=== PATIENT | female | born 1990 ===

== ENCOUNTER → 2024-10-10 13:07 | Outpatient (CLI) | payer OTHER, SELFPAY ==
[2024-10-10 14:03] LABS: Appearance Urine UA SL CLOUDY; Bilirubin Urine UA NEGATIVE (NEGATIVE); Color Urine UA YELLOW; Glucose Urine UA NEGATIVE (Negative); Ketones Urine UA TRACE (NEGATIVE); Leukocyte Esterase Urine UA NEGATIVE (NEGATIVE); Nitrite Urine UA NEGATIVE (Negative); Occult Blood Urine UA 1+ (Negative); Protein Urine UA TRACE (Negative); Specific Gravity Urine UA 1.025 (1.000-1.035); Urobilinogen Urine UA 0.2 E.U./dL (0.2)
[2024-10-10 14:08] LABS: pH Urine UA 6.5 (4.5-8.0)
[2024-10-10 14:13] LABS: Add Manual Diff / Slide Review NO; Basophils Absolute Auto 0 /uL (0-100); Basophils Percent Auto 0.3 % (0-2); Eosinophils Absolute Auto 400 /uL (0-450); Eosinophils Percent Auto 3.7 % (2-4); Hematocrit 33.7 % (36-46); Hemoglobin 11.8 g/dL (12.0-16.0); Lymphocytes Absolute Auto 2100 /uL (1100-4500); Lymphocytes Percent Auto 19.5 % (25-40); Mean Corpuscular HGB Conc 34.9 % (30-36); Mean Corpuscular Hemoglobin 29.3 PG (26-34); Monocytes Absolute Auto 700 /uL (0-900); Monocytes Percent Auto 6.3 % (3-14); Neutrophils Absolute Auto 7700 /uL (1500-7000); Neutrophils Percent Auto 70.2 % (50-75); Platelet Count 337 X10^3/uL (150-400); Red Blood Cell Count 4.02 X10^6/uL (4.0-5.2); Red Cell Distribution Width 13.1 % (11.6-14.8)
[2024-10-10 14:19] LABS: Natera Collection Specimen Collected
[2024-10-10 14:20] LABS: Bacteria Urine Few (2-10); RBC Urine 1-5/HPF (0-5/HPF); Squamous Epithelial Cell Urine 1-5 /HPF (0-5/HPF); Urine Volume 10mL (spun); WBC Urine 1-5/HPF (0-5/HPF)
[2024-10-10 14:20] LABS: Hemoglobin A1C% w Est Avg Glu 5.1 % (4.0-6.0)
[2024-10-10 14:21] LABS: Culture Indicated Urine Cult Not Indicated
[2024-10-10 15:22] LABS: Hepatitis B Surface Antigen NEGATIVE s/c (NEGATIVE); Rubella Antibody IgG 15.3 IU/mL (>15)
[2024-10-10 15:39] LABS: HIV 1 & 2 Ab/Ag 4th Gen Combo NEGATIVE (NEGATIVE); Hep C Virus Ab w/Reflex Quant NEGATIVE s/c (NEGATIVE)
[2024-10-11 04:38] LABS: RPR Screen Non Reactive (Non Reactive)
[2024-10-11 07:39] LABS: Varicella IgG Antibody Reactive (Non Reactive)
== END ==
PROVIDERS: Referring Provider Family Medicine; Visit Provider Family Medicine
DX: O09.521 Supervision of elderly multigravida, first trimester (principal); O99.210 Obesity complicating pregnancy, unspecified trimester
CPT/HCPCS: 36415; 80055; 81003; 81015; 83036; 86787; 86803; 86850; 86900; 86901; 87086; 87389

== ENCOUNTER → 2024-12-06 10:38 | Outpatient (CLI) | payer OTHER, SELFPAY ==
[2024-12-06 12:30] LABS: Hematocrit 30.8 % (36-46); Hemoglobin 10.9 g/dL (12.0-16.0)
[2024-12-06 12:39] LABS: GTT (PREG) 1 Hour PP 50gm Dose 122 mg/dL (76-139)
[2024-12-07 07:09] LABS: Alpha Fetoprotein 44.8 ng/mL (0.0-6.4)
== END ==
PROVIDERS: Referring Provider Family Medicine; Visit Provider Family Medicine
DX: O99.210 Obesity complicating pregnancy, unspecified trimester (principal)
CPT/HCPCS: 82105; 82950; 85014; 85018

== ENCOUNTER 2024-12-12 14:30 | Emergency (ER) | payer OTHER, SELFPAY ==
[2024-12-12 15:49] VITALS: BP 125/74; PULSE 110; RESP 18; TEMP 36.1; O2SAT 98; BMI 36.1
--- NOTE | 2024-12-12 15:58 | DI.US.S_ITS ---
PROCEDURE: US OB LIMITED INDICATIONS: Pain on left side to groin OUTSIDE/PRIOR DATING DATA: Working RICARDO: 05/08/2025 TECHNIQUE: Real-time scanning was performed of the fetus, with image documentation. Endovaginal scanning: Not performed COMPARISON: None. FINDINGS: A single living intrauterine gestation is present. Presentation: Breech. Placenta: Placental position is posterior, without previa. Low lying placenta, with the edge measuring 9 millimeter from the cervical os. Amniotic fluid index: 13.2 cm, normal range is 5-24 cm. Single deepest vertical pocket is 3.9 cm. heart rate: 140 beats per minute. Maternal cervical canal: 4.2 cm long. Normal lower limit is 2.5 cm. Clinically estimated gestational age: 19 weeks 0 days IMPRESSION: Single living intrauterine at nineteen weeks 0 days, RICARDO of 05/08/2025. Low lying placenta, measuring 9 millimeter from the cervical os. Attention on follow-up. No acute abnormality otherwise. Dictated by: Marc Gunter M.D. on 12/12/2024 at 17:01 Approved by: Marc Gunter M.D. on 12/12/2024 at 17:02
[2024-12-12 16:29] LABS: Add Manual Diff / Slide Review NO; Basophils Absolute Auto 100 /uL (0-100); Basophils Percent Auto 0.7 % (0-2); Eosinophils Absolute Auto 300 /uL (0-450); Hematocrit 33.1 % (36-46); Hemoglobin 11.3 g/dL (12.0-16.0); Lymphocytes Absolute Auto 2400 /uL (1100-4500); Lymphocytes Percent Auto 20.4 % (25-40); Mean Corpuscular Hemoglobin 29.4 PG (26-34); Mean Corpuscular Volume 86.4 fL (80-100); Monocytes Absolute Auto 700 /uL (0-900); Monocytes Percent Auto 5.7 % (3-14); Neutrophils Absolute Auto 8300 /uL (1500-7000); Neutrophils Percent Auto 70.2 % (50-75); Platelet Count 321 X10^3/uL (150-400); Red Blood Cell Count 3.83 X10^6/uL (4.0-5.2); Red Cell Distribution Width 13.5 % (11.6-14.8); White Blood Cell Count 11.8 X10^3/uL (4.5-11.0)
[2024-12-12 16:47] LABS: Alanine Aminotransferase 20 IU/L (<35); Albumin 4.2 g/dL (3.5-5.0); Albumin Globulin Ratio 1.1 (1.0-2.8); Alkaline Phosphatase 68 U/L (38-126); Aspartate Aminotransferase 25 IU/L (14-36); BUN Creatinine Ratio 16.7 (6-22); Bilirubin Total 0.4 mg/dL (0.2-1.3); Blood Urea Nitrogen 8 mg/dL (7-17); Calcium 9.3 mg/dL (8.4-10.2); Carbon Dioxide 21 mmol/L (22-32); Chloride 103 mmol/L (98-107); Estimated Glomerular Filt Rate > 60 mL/min (>60); Globulin 3.7 g/dL (1.7-4.1); Glucose 115 mg/dL (70-100); HEMOLYSIS < 15 (0-50); Lipase 93 U/L (23-300); Potassium 3.6 mmol/L (3.4-5.1); Sodium 133 mmol/L (137-145); Total Protein 7.9 g/dL (6.3-8.2)
--- NOTE | 2024-12-13 09:39 | PC.NURSE ---
late entry- care was started in the ED but transferred to Labor and Delivery to further her pregancy related triage. She was sent home from L&D- not admitted. But I don't feel she was a left without being seen in the ED. Her dispo was changed to released, other.
== END 2024-12-12 16:26 | disposition home or self-care (01) ==
PROVIDERS: Emergency Provider Emergency Medicine
DX: O26.892 Other specified pregnancy related conditions, second trimester (principal); R10.32 Left lower quadrant pain; Z3A.19 19 weeks gestation of pregnancy
CPT/HCPCS: 76815; 80053; 83690; 85025

== ENCOUNTER 2024-12-12 16:58 | Outpatient (CLI) | payer OTHER, SELFPAY ==
[2024-12-12 17:21] LABS: Appearance Urine UA CLEAR; Bilirubin Urine UA NEGATIVE (NEGATIVE); Color Urine UA YELLOW; Glucose Urine UA NEGATIVE (Negative); Ketones Urine UA 1+ (NEGATIVE); Leukocyte Esterase Urine UA NEGATIVE (NEGATIVE); Nitrite Urine UA NEGATIVE (Negative); Occult Blood Urine UA NEGATIVE (Negative); Protein Urine UA NEGATIVE (Negative); Specific Gravity Urine UA 1.025 (1.000-1.035); Urobilinogen Urine UA 0.2 E.U./dL (0.2)
--- NOTE | 2024-12-12 17:30 | P.TNLD_ITS ---
Visit Information Visit Information Date of evaluation: 12/12/24 Primary OB Provider: Sandro Root Reason for Evaluation: Yes other Comments/Additional reasons for admission: 34-year-old at GA 19+0 weeks presenting for left lower quadrant pain starting this morning. Reports initially feeling sharp, stabbing sensation in LLQ. Thought it was baby kicking, but was more painful than his kicks typically feel. Pain progressed to being more constant radiating through left groin region. No other symptoms of note. Endorses +FM. Denies vaginal bleeding or discharge, cramping, nausea, vomiting, dysuria, urinary frequency. Has not t ried anything for pain management. On further questioning does admit to occasional constipation/straining when passing BM. otherwise notable for BMI > 30 on ASA, history of delivery in previous . [facility] Medical History (Updated 12/12/24 @ 18:45 by Sandro Root MD) Patient denies significant medical history Situational mixed anxiety and depressive disorder (~2022) Surgical History (System 12/10/24 @ 15:16 by Phyllis Laurent) [place] teeth extracted Previous section (~2007) Family History (System 12/10/24 @ 15:16 by Phyllis Laurent) Grandmother Diabetes mellitus Aunt Uterine cancer Cancer Father Heart disease Hypertension Social History (System 12/10/24 @ 15:16 by Phyllis Laurent) marital status: number of children: 1 household members: spouse, family and children lives independently: Yes caregiver/support person: Yes housing: house pets and animals: Yes (dogs) education level: high school 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, 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) current occupational exposures/hazards: No nirmal/faith: Gnosticist special nirmal needs: No travel history: over 6 months ago other: possible upcoming travel to [place] seatbelt use: always water heater temp set < 120 deg: Yes working smoke detector in home: Yes fire extinguisher in home: Yes carbon monox detector in home: Yes firearms in home: No do you feel safe at home: Yes Smoking Status: Former smoker second hand exposure: No alcohol intake: former (occasionally when not ) substance use type: does not use during the past year weight has: increased > 10 lbs well-balanced diet: daily or most days daily servings fruits/ve-4 caffeine: Yes (black tea, usually only 1 cup/day) Type(s) of exercise: walking Review of Systems Review of Systems ROS: Yes All systems reviewed with the patient and are negative except as otherwise documented Exam Narrative Exam Narrative: General: Well-nourished, no distress HEENT: NC/AT, EOMI, moist mucous membranes CV: RRR, normal S1 S2, no m/g/r Resp: CTAB Abd: Gravid, soft, mild TTP LLQ, otherwise nontender in all quadrants, +BS Ext: Full ROM, no edema Skin: No rash or lesions Neuro: A&O x3, normal tone, no focal deficits Objective Imaging US OB Limited: Radiologist's impression: US OB LIMITED INDICATIONS: Pain on left side to groin OUTSIDE/PRIOR DATING DATA: Working RICARDO: 05/08/2025 TECHNIQUE: Real-time scanning was performed of the fetus, with image documentation. Endovaginal scanning: Not performed COMPARISON: None. FINDINGS: A single living intrauterine gestation is present. Presentation: Breech. Placenta: Placental position is posterior, without previa. Low lying placenta, with the edge measuring 9 millimeter from the cervical os. Amniotic fluid index: 13.2 cm, normal range is 5-24 cm. Single deepest vertical pocket is 3.9 cm. heart rate: 140 beats per minute. Maternal cervical canal: 4.2 cm long. Normal lower limit is 2.5 cm. Clinically estimated gestational age: 19 weeks 0 days IMPRESSION: Single living intrauterine at nineteen weeks 0 days, RICARDO of 05/08/2025. Low lying placenta, measuring 9 millimeter from the cervical os. Attention on follow-up. No acute abnormality otherwise. Dictated by: Marc Gunter M.D. on 12/12/2024 at 17:01 Approved by: Marc Gunter M.D. on 12/12/2024 at 17:02 Labs Labs: WBC 11.8, Hgb 11.3, plt 321 Na 133, Cr 0.48, glucose 115, AST 25, ALT 20, alk phos 68 UA: 1+ ketones; negative for nitrates, leukocytes, WBC, RBC Evaluation Evaluation Baseline heart rate: 140 Diagnosis, Plan/Disposition Final Diagnosis (1) Pelvic pain affecting in second trimester, antepartum: Status: Acute (2) History of delivery affecting : Status: Acute (3) Low lying placenta nos or without hemorrhage, second trimester: Status: Acute Plan/Disposition Plan: 34-year-old at [place] 19+0 weeks presenting for left lower quadrant pain. Workup notable for 1+ ketones in urine indicating mild dehydration. Suspect this in addition to possible component of constipation etiology of discomfort. UA negative for infection, blood work demonstrates only mild leukocytosis with no other systemic signs of illness. US demonstrates SIUP in breech position with 4+ cm cervical canal and no contractions on toco reducing concern for labor. Placenta is posterior without previa, however is low-lying with the edge measuring 9 mm from cervical os. Recommend hydration with Tylenol for analgesia. Discharge home, follow-up at routine visit or sooner if indicated. OB Disposition: home
[2024-12-12] MEDS: ACETAMINOPHEN 325 MG TABLET 975 MG PO (17:40)
[2024-12-12 17:45] LABS: Amorphous Sediment Urine 1+; Bacteria Urine None Seen; Culture Indicated Urine Cult Not Indicated; RBC Urine None Seen (0-5/HPF); Squamous Epithelial Cell Urine 1-5 /HPF (0-5/HPF); Urine Volume 10mL (spun); WBC Urine None Seen (0-5/HPF)
== END 2024-12-12 18:10 | disposition home or self-care (01) ==
LOC: LABOR 18:44 → OB 12-13 15:19
PROVIDERS: Referring Provider Family Medicine; Visit Provider Family Medicine
DX: O26.892 Other specified pregnancy related conditions, second trimester (principal); O44.42 Low lying placenta NOS or without hemorrhage, second trimester; R10.2 Pelvic and perineal pain; O34.219 Maternal care for unspecified type scar from previous cesarean delivery; Z3A.19 19 weeks gestation of pregnancy
CPT/HCPCS: 59050; 76815; 80053; 81001; 83690; 85025; 99281; G0378; G0379

== ENCOUNTER → 2024-12-23 07:34 | Outpatient (CLI) | payer OTHER, SELFPAY ==
--- NOTE | 2024-12-23 07:35 | DI.US.S_ITS ---
PROCEDURE: US OB >= 14 WEEKS FETUS INDICATIONS: anatomy OUTSIDE/PRIOR DATING DATA: The calculations are made using the RICARDO of 05/08/2025. TECHNIQUE: Real-time scanning was performed of the fetus, with image documentation and biometric measurements. Endovaginal scanning: Not performed COMPARISON: [facility], OB LIMITED, 12/12/2024, 16:19. FINDINGS: General: A single living intrauterine gestation is present. Presentation: Variable. Placenta: Placental position is posterior , without previa. Amniotic fluid index: 17.7 cm, normal range is 5-24 cm. Single deepest vertical pocket is 5.1 cm. heart rate: 149 beats per minute. Maternal cervical canal: 4.6 cm long. Normal lower limit is 2.5 cm. biometrics: Biparietal diameter: 5.0 cm, 21 weeks 0 days Head circumference: 18.5 cm, 20 weeks 6 days Abdominal circumference: 16.7 cm, 21 weeks 5 days Femur length: 3.7 cm, 21 weeks 6 days Clinically estimated gestational age: 20 weeks 4 days Composite gestational age from present scan: 21 weeks 3 days Estimated weight and percentile: 444 g, 95th percentile Anatomic survey: Neuro: Ventricles are non-dilated at less than 10 mm. Cisterna magna is normal at 3-11 mm. Cerebellum is normal in size and morphology. Nuchal skin fold: Normal at less than 6 mm between 14-21 weeks gestational age. Face: Nose and lips, facial profile are normal. Spine: Not well seen. Heart: 4-chambered heart is present, outflow tracts are not well seen. Diaphragm: Diaphragm is intact. Stomach: Left-sided stomach is present. Kidneys: No hydronephrosis. Normal is less than 5 mm in 2nd trimester, less than 7 mm in 3rd trimester. Cord: 3-vessel cord has orthotopic insertion. Bladder: Normal in size. Extremities: All 4 extremities identified. IMPRESSION: 1. Single live intrauterine consistent with 21 weeks and 3 days. 2. Estimated weight is in the 95th percentile, developing macrosomia is in the differential and short-term follow-up is recommended. 3. The spine and outflow tracts are not well seen, recommend short-term follow-up. The remainder of the anatomic survey is within normal limits. We strive to produce accurate, complete, and clear reports of imaging services. To assist us in improving patient care, this report was composed using standard report templates and voice recognition software. Therefore, it may contain abnormal punctuation, insertions and/or omissions. Occasional wrong-word or sound-alike substitutions may occur. Though we review the report and make efforts to correct it, we do recommend that the report be read carefully in proper context to recognize any text inaccuracies. Dictated by: Heriberto Justice M.D. on 12/23/2024 at 10:40 Approved by: Heriberto Justice M.D. on 12/23/2024 at 10:44
== END ==
PROVIDERS: Referring Provider Family Medicine; Visit Provider Family Medicine
DX: Z34.82 Encounter for supervision of other normal pregnancy, second trimester (principal); Z3A.21 21 weeks gestation of pregnancy
CPT/HCPCS: 76811

== ENCOUNTER → 2025-01-20 10:59 | Outpatient (CLI) | payer OTHER, SELFPAY ==
--- NOTE | 2025-01-20 11:00 | DI.US.S_ITS ---
PROCEDURE: US OB LIMITED INDICATIONS: incomplete views of spine and cardiac outflow tracts OUTSIDE/PRIOR DATING DATA: Working RICARDO is 05/08/2025 TECHNIQUE: Real-time scanning was performed of the fetus, with image documentation. COMPARISON: [facility], OB >= 14 WEEKS FETUS, 12/23/2024, 7:54. [facility], OB LIMITED, 12/12/2024, 16:19. FINDINGS: A single living intrauterine gestation is present. Presentation: Breech. Placenta: Placental position is posterior, without previa. Amniotic fluid index: 16.7 cm, normal range is 5-24 cm. Single deepest vertical pocket is 4.9 cm. heart rate: 150 beats per minute. Maternal cervical canal: 3.2 cm long. Normal lower limit is 2.5 cm. Clinically estimated gestational age: 24 weeks and 4 days The thoracic spine is likely within normal limits. Other portions of the spine not well seen. Outflow tracts remain not well seen. LVOT is probably normal. IMPRESSION: LVOT and thoracic spine are probably within normal limits. However, the RVOT and other portions of the spine remain not well seen. Dictated by: Jorge Steward M.D. on 01/20/2025 at 15:33 Approved by: Jorge Steward M.D. on 01/20/2025 at 15:36
== END ==
PROVIDERS: Referring Provider Family Medicine; Visit Provider Family Medicine
DX: Z34.82 Encounter for supervision of other normal pregnancy, second trimester (principal); Z3A.24 24 weeks gestation of pregnancy
CPT/HCPCS: 76815

== ENCOUNTER → 2025-03-06 07:08 | Outpatient (CLI) | payer OTHER, SELFPAY ==
--- NOTE | 2025-03-06 07:10 | DI.US.S_ITS ---
PROCEDURE: US OB LIMITED INDICATIONS: spine and outflow tracts are not well seen OUTSIDE/PRIOR DATING DATA: Last menstrual period (LMP): Unknown. LMP-based estimated date of delivery (RICARDO): 05/09/2025. First dating scan (date and location): 10/10/2024. Estimated date of delivery (RICARDO) from first dating scan: 05/08/2025. The calculations are made using the ultrasound RICARDO of 05/08/2025. TECHNIQUE: Real-time scanning was performed of the fetus, with image documentation. Endovaginal scanning: Not performed COMPARISON: [facility], OB LIMITED, 01/20/2025, 11:09. FINDINGS: General: A single living intrauterine gestation is present. Presentation: Vertex. Placenta: Placental position is posterior, without previa. Amniotic fluid index: 8.6 cm, normal range is 5-24 cm. Single deepest vertical pocket is 4.9 cm. heart rate: 143 beats per minute. Maternal cervical canal: 4.8 cm long. Normal lower limit is 2.5 cm. No funneling. Clinically estimated gestational age: 31 weeks 0 days Cervical spine, lumbar spine, sacral spine are within normal limits. No sacrococcygeal abnormality. RVOT and LVOT are within normal limits. IMPRESSION: 1. Yang living intrauterine at 31 weeks 0 days based on prior dating. Vertex position. 2. Normal placenta and amniotic fluid. 3. Normal appearance of the cervical, lumbar, sacral spine. (Thoracic spine previously visualized). RVOT and LVOT are normal in appearance. We strive to produce accurate, complete, and clear reports of imaging services. To assist us in improving patient care, this report was composed using standard report templates and voice recognition software. Therefore, it may contain abnormal punctuation, insertions and/or omissions. Occasional wrong-word or sound-alike substitutions may occur. Though we review the report and make efforts to correct it, we do recommend that the report be read carefully in proper context to recognize any text inaccuracies. Dictated by: Rob Schmidt M.D. on 03/06/2025 at 13:51 Approved by: Rob Schmidt M.D. on 03/06/2025 at 13:57
== END ==
PROVIDERS: Referring Provider Family Medicine; Visit Provider Family Medicine
DX: Z36.89 Encounter for other specified antenatal screening (principal); Z3A.31 31 weeks gestation of pregnancy
CPT/HCPCS: 76815

== ENCOUNTER → 2025-03-24 17:00 | Outpatient (CLI) | payer OTHER, SELFPAY ==
[2025-03-24 17:52] LABS: Hematocrit 31.1 % (36-46); Hemoglobin 10.8 g/dL (12.0-16.0)
[2025-03-24 18:42] LABS: GTT (PREG) 1 Hour PP 50gm Dose 156 mg/dL (76-139)
== END ==
PROVIDERS: Referring Provider Family Medicine; Visit Provider Family Medicine
DX: Z36.9 Encounter for antenatal screening, unspecified (principal); Z3A.25 25 weeks gestation of pregnancy
CPT/HCPCS: 36415; 82950; 85014; 85018

== ENCOUNTER → 2025-03-25 15:01 | Outpatient (CLI) | payer OTHER, SELFPAY ==
[2025-03-25 16:01] LABS: Add Manual Diff / Slide Review NO; Hematocrit 30.4 % (36-46); Hemoglobin 10.7 g/dL (12.0-16.0); Lymphocytes Absolute Auto 1900 /uL (1100-4500); Mean Corpuscular HGB Conc 35.4 % (30-36); Mean Corpuscular Hemoglobin 29.6 PG (26-34); Mean Corpuscular Volume 83.6 fL (80-100); Platelet Count 320 X10^3/uL (150-400)
[2025-03-25 16:23] LABS: Microalbumi Creatinin Ratio Ur 61.0 ug/mg CR (<30)
== END ==
PROVIDERS: Referring Provider Family Medicine; Visit Provider Family Medicine
DX: R60.0 Localized edema (principal); R73.09 Other abnormal glucose
CPT/HCPCS: 36415; 82043; 82570; 85025

== ENCOUNTER → 2025-03-28 08:06 | Outpatient (CLI) | payer OTHER, SELFPAY ==
[2025-03-28 09:26] LABS: Glucose Fasting Gestational 101 mg/dL (76-95)
[2025-03-28 09:32] LABS: Alanine Aminotransferase 14 IU/L (<35); Albumin 3.5 g/dL (3.5-5.0); Albumin Globulin Ratio 1.1 (1.0-2.8); Alkaline Phosphatase 159 U/L (38-126); Blood Urea Nitrogen 10 mg/dL (7-17); Calcium 9.2 mg/dL (8.4-10.2); Carbon Dioxide 21 mmol/L (22-32); Chloride 104 mmol/L (98-107); Estimated Glomerular Filt Rate > 60 mL/min (>60); Globulin 3.3 g/dL (1.7-4.1); Glucose 101 mg/dL (70-99); HEMOLYSIS < 15 (0-50); Potassium 4.1 mmol/L (3.4-5.1); Sodium 134 mmol/L (137-145); Total Protein 6.8 g/dL (6.3-8.2)
[2025-03-28 10:09] LABS: Glucose 1 Hour Gest 185 mg/dL (76-180)
[2025-03-28 11:11] LABS: Glucose 2 Hour Gest 165 mg/dL (76-155)
[2025-03-28 11:28] LABS: Glucose Tol Interp,Gestational INTERPRETATION
[2025-03-28 12:56] LABS: Glucose 3 Hour Gest 130 mg/dL (76-140)
== END ==
PROVIDERS: Referring Provider Family Medicine; Visit Provider Family Medicine
DX: O99.810 Abnormal glucose complicating pregnancy (principal); O09.899 Supervision of other high risk pregnancies, unspecified trimester; O09.521 Supervision of elderly multigravida, first trimester; O12.03 Gestational edema, third trimester; O26.899 Other specified pregnancy related conditions, unspecified trimester; R51.9 Headache, unspecified
CPT/HCPCS: 36415; 80053; 82951; 82952

== ENCOUNTER → 2025-04-07 13:24 | Outpatient (CLI) | payer OTHER, SELFPAY ==
[2025-04-07 14:41] LABS: Creatinine 24 Hour Urine 1269 mg/day (800-1800); Protein (Total) Urine Random 29 mg/dL (0-12); Total Volume Urine 3000 mL
== END ==
PROVIDERS: Referring Provider Family Medicine; Visit Provider Family Medicine
DX: R60.0 Localized edema (principal); R60.9 Edema, unspecified
CPT/HCPCS: 82570; 84156

== ENCOUNTER 2025-04-09 12:47 | Observation (INO) | payer OTHER, SELFPAY ==
--- NOTE | 2025-04-09 13:30 | PM.OBTRLD ---
Visit Information Visit Information Date of evaluation: 04/09/25 Primary OB Provider: Sandro Root Reason for Evaluation: Yes non-stress test Comments/Additional reasons for admission: 34yo presenting for NST. Pt recent 24 hour urine significantly elevated, reported persistent peripheral edema without ERWIN, visual changes, SOB, RUQ pain. Endorses +FM; denies vb, lof, abd pain, ctx. notable for AMA, obesity, macrosomia (EFW 95th percentile). [facility] Medical History (Updated 04/11/25 @ 13:40 by Sandro Root MD) Patient denies significant medical history Situational mixed anxiety and depressive disorder (~2022) Surgical History (System 12/10/24 @ 15:16 by Phyllis Laurent) [place] teeth extracted Previous section (~2007) Family History (System 12/10/24 @ 15:16 by Phyllis Laurent) Grandmother Diabetes mellitus Aunt Uterine cancer Cancer Father Heart disease Hypertension Social History (System 12/10/24 @ 15:16 by Phyllis Laurent) marital status: number of children: 1 household members: spouse, family and children lives independently: Yes caregiver/support person: Yes housing: house pets and animals: Yes (dogs) education level: high school occupational status: employed current occupational exposures/hazards: No nirmal/jew: Sabianism special nirmal needs: No travel history: over 6 months ago other: possible upcoming travel to [place] seatbelt use: always water heater temp set < 120 deg: Yes working smoke detector in home: Yes fire extinguisher in home: Yes carbon monox detector in home: Yes firearms in home: No do you feel safe at home: Yes second hand exposure: No alcohol intake: former substance use type: does not use during the past year weight has: increased > 10 lbs well-balanced diet: daily or most days daily servings fruits/ve-4 caffeine: Yes (black tea, usually only 1 cup/day) Type(s) of exercise: walking Objective Labs 04/09/25 13:45 04/09/25 13:45 Evaluation Evaluation Baseline heart rate: 140 Variability: Moderate (6-25) monitor accelerations: Present Monitor Decelerations: Absent Contraction Frequency (minutes): 7 Uterine Contraction Intensity: Mild Category of Tracing: Reactive Status: Category l Diagnosis, Plan/Disposition Final Diagnosis (1) Elevated blood pressure affecting in third trimester, antepartum: Status: Acute (2) Leg swelling in in third trimester: Status: Acute (3) Proteinuria affecting in third trimester: Status: Acute Plan/Disposition Plan: - New onset proteinuria and peripheral edema without meeting other diagnostic criteria for preeclampsia - BP moderately elevated > 140/90 on multiple occasions - Close monitoring with BP check in 2 days - Return precautions for new/worsening sxs of preeclampsia OB Disposition: home
[2025-04-09 13:50] LABS: Add Manual Diff / Slide Review NO; Hematocrit 31.6 % (36-46); Hemoglobin 11.0 g/dL (12.0-16.0); Lymphocytes Absolute Auto 1700 /uL (1100-4500); Mean Corpuscular HGB Conc 34.9 % (30-36); Mean Corpuscular Hemoglobin 28.9 PG (26-34); Mean Corpuscular Volume 82.8 fL (80-100); Platelet Count 281 X10^3/uL (150-400)
[2025-04-09] MEDS: NIFEdipine 30 MG TAB ER PO (13:53)
[2025-04-09 14:01] LABS: Alanine Aminotransferase 15 IU/L (<35); Albumin 3.5 g/dL (3.5-5.0); Albumin Globulin Ratio 1.0 (1.0-2.8); Alkaline Phosphatase 171 U/L (38-126); Blood Urea Nitrogen 10 mg/dL (7-17); Calcium 8.7 mg/dL (8.4-10.2); Carbon Dioxide 19 mmol/L (22-32); Chloride 108 mmol/L (98-107); Estimated Glomerular Filt Rate > 60 mL/min (>60); Globulin 3.5 g/dL (1.7-4.1); Glucose 103 mg/dL (70-99); HEMOLYSIS < 15 (0-50); Potassium 4.1 mmol/L (3.4-5.1); Sodium 134 mmol/L (137-145); Total Protein 7.0 g/dL (6.3-8.2); Uric Acid 5.0 mg/dL (2.5-6.2)
[2025-04-09] MEDS: LABETALOL 100 MG TABLET 200 MG PO (15:14)
[2025-04-09] MEDS: FUROSEMIDE 20 MG TABLET PO (15:15)
== END 2025-04-09 16:00 | disposition home or self-care (01) ==
PROVIDERS: Admitting Provider Family Medicine; Referring Provider Family Medicine; Visit Provider Family Medicine
DX: O12.13 Gestational proteinuria, third trimester (principal); O26.893 Other specified pregnancy related conditions, third trimester; R03.0 Elevated blood-pressure reading, without diagnosis of hypertension; M79.89 Other specified soft tissue disorders; O09.523 Supervision of elderly multigravida, third trimester; O99.213 Obesity complicating pregnancy, third trimester; E66.9 Obesity, unspecified; O36.63X0 Maternal care for excessive fetal growth, third trimester, not applicable or unspecified; Z3A.35 35 weeks gestation of pregnancy
CPT/HCPCS: 59025; 59050; 80053; 84550; 85025; G0378; G0379

== ENCOUNTER → 2025-04-11 13:27 | Outpatient (CLI) | payer OTHER, SELFPAY ==
[2025-04-12 12:31] LABS: Strep Grp B PCR NEG for Grp B Strep
== END ==
PROVIDERS: Visit Provider Family Medicine
DX: Z34.93 Encounter for supervision of normal pregnancy, unspecified, third trimester (principal); Z3A.36 36 weeks gestation of pregnancy
CPT/HCPCS: 87653

== ENCOUNTER → 2025-04-16 09:06 | Outpatient (CLI) | payer OTHER, SELFPAY ==
--- NOTE | 2025-04-16 09:10 | DIAB.GDA ---
Addendum entered by Olya Vitale 04/24/25 17:37: Phone Call: left a vm encouraging pt to call or message update on BG. Per provider notes Bg seem to be in goal. Original Note: Initial Gestational Diabetes Assessment Name: Jennie La Date: 04/16/25 Time: 910-10a Dx: Gestational Diabetes Provider: Dk RICARDO: 05/08/25 Weeks: 35-36 Jennie presents for initial GDM visit accompanied by Ritchie. FH of Maternal grandmother with T2DM. No previous PMH of GDM. Elevated BP this . States CS scheduled fro 05/01. BG in goal. Pretty low CHO diet, can add some higher fiber options. Diet Recall: 89a: eggs, broccoli sn: nothing or cheese crackers OR balanced break 12-1p: leftovers from dinner 5p: same snack as morning OR nuts OR banana 7p: meat and veggies +/- 1c potaotes or rice 9p: 1-2 scoops ice cream or nothing water 8x 12oz gingerale prn with feeling unwell Anthropometrics: Ht: 63 Wt: 238# 04/11/25 Prepregnancy wt: 195# Physical Activity: None, pain barrier Self-Monitoring Blood Glucose: checking FBG and 1 hour pc, currently no elevations Date Pre Post Pre Post Pre Post HS 04/15 82 84 87 107 2 hour 04/16 82 Diabetes Medications: None Pertinent Labs: 03/2025 Screen: 156 OGTT: 101, 185, 165, 130 Nutrition Rx: Carbohydrates: Meal: 45-g lunch and dinner; 30g breakfast Snack: 15-30g Nutrition Diagnosis: Altered nutrition related lab value r/t GDM dx aeb recent OGTT Inadequate CHO intake during r/t GD dx and lack of nutrition knowledge aeb pt report and diet recall and BG <100 postprandial Intervention: This participant was very receptive. Provided appropriate educational handouts. Discussed the following topics: GDM pathophysiology and impact of hyperglycemia on mom and baby Risk for T2DM for mom and baby in the future Ways to reduce risk T2DM Plate Method, meal timing, carb counting, pairing macronutrients and spreading out CHO for better BG management Blood glucose goals (FBG: <95 and 1 hour <140 mg/dL); importance of checking 4x per day (FBG and pc) Impact of macronutrients on blood glucose Recommended servings for carbohydrates at meals and snacks Brainstormed appropriate meal plan based on her food preferences recommendations Role of physical activity and following provider guidelines for safety Goals: Add 30-45g CHO at meals Eat q 3-4 hours Send BG to RD in one week Follow-up: [facility] follow-up in one week via messaging and in person prn pending results Olya Vitale RDN, [place] Certified Diabetes Care and Manager Production T: [phone] F: [phone] [email or web address] Thank you for this referral
== END ==
PROVIDERS: Referring Provider Family Medicine
DX: O24.419 Gestational diabetes mellitus in pregnancy, unspecified control (principal); Z3A.35 35 weeks gestation of pregnancy; Z71.3 Dietary counseling and surveillance
CPT/HCPCS: 97802

== ENCOUNTER → 2025-04-16 10:06 | Outpatient (CLI) | payer OTHER, SELFPAY ==
[2025-04-16 10:35] LABS: Add Manual Diff / Slide Review NO; Hematocrit 32.9 % (36-46); Hemoglobin 11.6 g/dL (12.0-16.0); Lymphocytes Absolute Auto 1600 /uL (1100-4500); Mean Corpuscular HGB Conc 35.2 % (30-36); Mean Corpuscular Hemoglobin 29.2 PG (26-34); Mean Corpuscular Volume 82.9 fL (80-100); Platelet Count 315 X10^3/uL (150-400)
[2025-04-16 11:07] LABS: Alanine Aminotransferase 16 IU/L (<35); Albumin 3.4 g/dL (3.5-5.0); Albumin Globulin Ratio 1.0 (1.0-2.8); Alkaline Phosphatase 191 U/L (38-126); Blood Urea Nitrogen 13 mg/dL (7-17); Calcium 9.1 mg/dL (8.4-10.2); Carbon Dioxide 17 mmol/L (22-32); Chloride 107 mmol/L (98-107); Estimated Glomerular Filt Rate > 60 mL/min (>60); Globulin 3.3 g/dL (1.7-4.1); Glucose 96 mg/dL (70-99); HEMOLYSIS < 15 (0-50); Potassium 4.2 mmol/L (3.4-5.1); Sodium 133 mmol/L (137-145); Total Protein 6.7 g/dL (6.3-8.2)
== END ==
PROVIDERS: Referring Provider Family Medicine; Visit Provider Family Medicine
DX: O12.03 Gestational edema, third trimester (principal); O14.90 Unspecified pre-eclampsia, unspecified trimester
CPT/HCPCS: 36415; 80053; 85025; 97802